=== PATIENT | female | born 1960 | race Asian ===

== ENCOUNTER → 2017-09-24 | Outpatient (CLI) | payer BC ==
[~2017-09-24] MED LIST: NO HOME MEDICATIONS
== END ==
LOC: MC.RAD 14:20
DX: Z12.31 Encounter for screening mammogram for malignant neoplasm of breast (principal); Z90.12 Acquired absence of left breast and nipple

== ENCOUNTER → 2018-09-07 | Outpatient (CLI) | payer BC | LOC: SUN.DIA 15:02 | DX: E11.9 Type 2 diabetes mellitus without complications (principal) | CPT/HCPCS: G0108 ==

== ENCOUNTER → 2018-09-15 | Outpatient (CLI) | payer BC | LOC: SUN.DIA 09:30 | DX: E11.9 Type 2 diabetes mellitus without complications (principal) | CPT/HCPCS: G0109 ==

== ENCOUNTER → 2018-09-22 | Outpatient (CLI) | payer BC | LOC: SUN.DIA 09:30 | DX: E11.9 Type 2 diabetes mellitus without complications (principal) | CPT/HCPCS: G0109 ==

== ENCOUNTER → 2018-09-28 | Outpatient (CLI) | payer BC | LOC: SUN.DIA 10:01 | DX: E11.9 Type 2 diabetes mellitus without complications (principal) | CPT/HCPCS: G0108 ==

== ENCOUNTER → 2018-09-29 | Outpatient (CLI) | payer BC | LOC: SUN.DIA 09:30 | DX: E11.9 Type 2 diabetes mellitus without complications (principal) | CPT/HCPCS: G0109 ==

== ENCOUNTER → 2019-04-20 | Outpatient (CLI) | payer BC | LOC: MC.RAD 08:45 | DX: Z12.31 Encounter for screening mammogram for malignant neoplasm of breast (principal) ==

== ENCOUNTER 2019-05-14 21:32 | Emergency (ER) | payer BC ==
[~2019-05-14] VITALS: Ht 149.9 cm; Wt 63.6 kg
[2019-05-14 21:39] VITALS: TEMP 97.8
[2019-05-14] MEDS ORDERED: COZAAR 50MG50 MG/TAB PO (22:03)
[2019-05-14] MEDS ORDERED: LIPITOR 40MG TA40 MG PO (22:03)
[2019-05-14] MEDS ORDERED: ASPIRIN 81M81 MG/TA2 PO (22:03)
[2019-05-14] MEDS ORDERED: GLUCOPHAGE500 MG/TAB PO (22:03)
[2019-05-14] MEDS ORDERED: HCTZ12.5TAB PO (22:04)
[2019-05-14 22:19] LABS: BASO % 0.4 % (0.0-2.0); EOS # 0.3 (0.0-0.7); EOS % 3.8 % (0-4.0); GRAN # 4.7 (1.4-6.5); GRAN % 57.7 % (42.2-75.2); HEMATOCRIT 38.8 % (37.0-47.0); HEMOGLOBIN 12.7 g/dl (12.5-16.0); LYMPH # 2.5 (1.2-3.4); LYMPH % 30.2 % (20.0-51.0); MEAN CELL VOLUME 100 fl (80.0-100.0); MEAN CORPUSCULAR HEMOGLOBIN 33 pg (27.0-31.0); MEAN CORPUSCULAR HGB CONC 33 g/dl (33.0-37.0); MEAN PLATELET VOLUME 10.6 fl (7.4-10.4); MONO # 0.6 (0.1-0.6); MONO % 7.5 % (1.7-9.3); PLATELET COUNT 273 K/mm3 (130-400); RED BLOOD COUNT 3.88 M/mm3 (4.10-5.30)
[2019-05-14 22:36] LABS: ALANINE AMINOTRANSFERASE 19 U/L (9-52); ALBUMIN 4.3 gm/dL (3.5-5.0); ALKALINE PHOSPHATASE 93 U/L (50-136); ANION GAP 10 mmol/L (7-16); AST,SGOT 26 U/L (15-37); BILIRUBIN,TOTAL 0.4 mg/dL (0.0-1.0); BLOOD UREA NITROGEN 15 mg/dL (7-17); CALCIUM 9.6 mg/dL (8.4-10.2); CARBON DIOXIDE 27 mmol/L (22-30); CHLORIDE 100 mmol/L (98-107); CREATININE, serum 0.68 (0.52-1.25); GLUCOSE 257 mg/dL (74-106); POTASSIUM 3.3 mmol/L (3.4-5.0); SODIUM 137 mmol/L (137-145); TOTAL PROTEIN 8.2 gm/dL (6.4-8.2)
[2019-05-14 22:47] LABS: TROPONIN-I < 0.012 ng/mL (0.000-0.035)
[2019-05-14 23:40] VITALS: BP 144/88; PULSE 76
== END 2019-05-14 23:40 | disposition home or self-care (01) ==
LOC: COL.ER 21:32
PROVIDERS: Emergency Medicine
DX: I10 Essential (primary) hypertension (principal); E11.9 Type 2 diabetes mellitus without complications; E78.5 Hyperlipidemia, unspecified; Z79.84 Long term (current) use of oral hypoglycemic drugs; Z79.82 Long term (current) use of aspirin